=== PATIENT | female | born 1955 | race Caucasian/White ===

== ENCOUNTER 2023-04-29 11:50 | Emergency (ER) | payer MEDICARE, MEDICAID, SELFPAY ==
[2023-04-29] VITALS (16 sets, daily range): BP systolic 185–226; BP diastolic 86–109; PULSE 65–75; RESP 12–21; TEMP 37.1; O2SAT 94–98
--- NOTE | 2023-04-29 12:00 | RT.EKG_ITS ---
APPROVED REPORT Exam: Resting ECG Reason for Exam: hypertension Patient Location: E HR:69 bpm ECG Measurements Heart Rate 69 AXIS MD 176 P 67 QRSd 84 QRS 39 QT 401 T 48 QTc 429 Conclusion Sinus rhythm..V-rate 60- [address] segment or T wave abnormalities to suggest occlusive PA
--- NOTE | 2023-04-29 12:17 | W.ED.GENAD ---
Discharge Plan Disposition Patient Disposition: Home Discharge Details Chief Complaint: GenMedical Clinical Impression: Chronic hyponatremia, Hypertension Primary Care Provider: Enrique Ibarra ED Provider: Grace Liu Home Meds and New Rx's Prescriptions: No Action losartan 50 MG tablet 50 mg PO DAILY amlodipine 5 MG tablet 5 mg PO DAILY Discharge Instructions Instructions: Hypertension (ED), Hyponatremia (ED) Additional Instructions: Call your primary care doctor today; schedule an appointment to be seen this week to follow up on your visit here. Take your blood pressure medications as prescribed. Return to the emergency department for new or worsening symptoms including headache, vomiting, confusion, dark urine, inability to urinate, or if you have any other concerns. Medical Decision Making 68yo F with HTN, denies other medical conditions, presenting for hyponatremia and hypertension at outpatient visit; sodium reportedly 122. BP on arrival 226/109, repeat SBP 190's. Asymptomatic; would not treat emergently. Physical exam reassuring with normal neurologic exam. Home meds ordered. Family at bedside report patient is a heavy drinker,; patient reports drinking some every day but will not quantify how much. Labs reviewed; CBC reassuring, CMP with Na of 128, Cr 0.7. Mg slightly low at 1.5. TSH normal. Urine with trace RBCs, negative for protein. Ur sosium 24, cr <13.0, osms (send-out) pending. Suspect beer potomania. EKG NSR with appropriate intervals, no concerning ST segment or T wave abnormalities to suggest occlusive VT. Troponin negative. No indication of acute end-organ damage from her hypertension and she is asymptomatic from both a hypertension and hyponatremia standpoint. Her sodium level in and of itself does not warrant inpatient treatment. On reassessment SBP in 180's. Offered ETOH detox resources which patient declined. Reviewed her current prescriptions; patient and family at bedside state she has both these prescriptions at home. Advised close followup with her primary care doctor. Discharged home; discharge instructions including return precautions were reviewed with patient who verbalized understanding. All questions were answered and they are in full agreement with the plan. Lab Data Lab results reviewed: Yes I reviewed the patient's lab results. Labs: Laboratory Tests Range/Units 04/29/23 04/29/23 04/29/23 12:32 12:32 12:35 WBC (4.4-10.8) 10^3/uL RBC (3.93-5.22) 10^6/uL Hgb (11.2-15.7) g/dL Hct (36.0-46.0) % MCV (80-95) fL MCH (27.0-33.0) pg MCHC (32.0-36.0) % RDW (11.7-14.6) % Plt Count (130-400) 10^3/uL MPV (8.0-11.0) fL Immature Gran % Neutrophils % Lymphocytes % Monocytes % Eosinophils % Basophils % Nucleated RBC % (0.0-0.3) % Absolute Neutrophils (1.2-6.7) 10^3/uL Absolute Lymphocytes (1.2-3.4) 10^3/uL Absolute Monocytes (0.1-0.8) 10^3/uL Absolute Eosinophils (0.0-0.7) 10^3/uL Absolute Basophils (0.0-0.2) 10^3/uL Sodium (136-145) mmol/L 128 L Potassium (3.5-5.1) mmol/L 3.9 Chloride (98-107) mmol/L 90 L Carbon Dioxide (21.0-32.0) mmol/L 26.1 Anion Gap (3-11) mmol/L 11.9 H BUN (7-18) mg/dL 4 L Creatinine (0.55-1.02) mg/dL 0.7 Est GFR (CKD-EPI 2020) (mL/min/1.73m2) 94.73 Glucose (74-106) mg/dL 88 Uric Acid (2.6-6.0) mg/dL 3.1 Calcium (8.5-10.1) mg/dL 9.2 Magnesium (1.8-2.4) mg/dL 1.5 L Total Bilirubin (0.2-1.0) mg/dL 0.7 AST (15-37) U/L 37 ALT (14-59) U/L 44 Alkaline Phosphatase (46-116) U/L 166 H Troponin I (<or=60) ng/L < 50 Total Protein (6.4-8.2) g/dL 8.0 Albumin (3.4-5.0) g/dL 4.3 TSH (0.36-3.74) uIU/mL 2.00 Urine Color (Yellow) Yellow Urine Clarity (Clear) Clear Urine pH (5-8) 7.0 Ur Specific [place] (1.005-1.025) 1.010 Urine Protein (Negative) mg/dL Negative Urine Ketones (Negative) mg/dL Negative Urine Blood (Negative) Trace-intact H Urine Nitrite (Negative) Negative Urine Bilirubin (Negative) Negative Urine Urobilinogen (Up to 0.2) mg/dL 0.2 Ur Leukocyte Esterase (Negative) Negative Urine RBC (0-2) HPF 3-5 H Urine WBC (0-5) HPF 0-2 Ur Epithelial Cells (Negative) HPF Few Urine Crystals (Negative) HPF Negative Urine Bacteria (Negative) HPF Rare Urine Casts (Negative) LPF Negative Urine Mucus (Negative) Negative Ur Culture Indicated? No Ur Random Creatinine mg/dL < 13.0 Ur Random Sodium mmol/L 24 Urine Glucose (Negative) mg/dL Negative Range/Units 04/29/23 04/29/23 12:35 12:35 WBC (4.4-10.8) 10^3/uL 6.25 RBC (3.93-5.22) 10^6/uL 3.72 L Hgb (11.2-15.7) g/dL 13.5 Hct (36.0-46.0) % 37.0 MCV (80-95) fL 100 H MCH (27.0-33.0) pg 36.3 H MCHC (32.0-36.0) % 36.5 H RDW (11.7-14.6) % 11.3 L Plt Count (130-400) 10^3/uL 216 MPV (8.0-11.0) fL 9.0 Immature Gran % 0.3 Neutrophils % 66.7 Lymphocytes % 21.4 Monocytes % 10.2 Eosinophils % 0.6 Basophils % 0.8 Nucleated RBC % (0.0-0.3) % 0.0 Absolute Neutrophils (1.2-6.7) 10^3/uL 4.16 Absolute Lymphocytes (1.2-3.4) 10^3/uL 1.34 Absolute Monocytes (0.1-0.8) 10^3/uL 0.64 Absolute Eosinophils (0.0-0.7) 10^3/uL 0.04 Absolute Basophils (0.0-0.2) 10^3/uL 0.05 Sodium (136-145) mmol/L Potassium (3.5-5.1) mmol/L Chloride (98-107) mmol/L Carbon Dioxide (21.0-32.0) mmol/L Anion Gap (3-11) mmol/L BUN (7-18) mg/dL Creatinine (0.55-1.02) mg/dL Est GFR (CKD-EPI 2020) (mL/min/1.73m2) Glucose (74-106) mg/dL Uric Acid (2.6-6.0) mg/dL Cancelled Calcium (8.5-10.1) mg/dL Magnesium (1.8-2.4) mg/dL Total Bilirubin (0.2-1.0) mg/dL AST (15-37) U/L ALT (14-59) U/L Alkaline Phosphatase (46-116) U/L Troponin I (<or=60) ng/L Total Protein (6.4-8.2) g/dL Albumin (3.4-5.0) g/dL TSH (0.36-3.74) uIU/mL Cancelled Urine Color (Yellow) Urine Clarity (Clear) Urine pH (5-8) Ur Specific [place] (1.005-1.025) Urine Protein (Negative) mg/dL Urine Ketones (Negative) mg/dL Urine Blood (Negative) Urine Nitrite (Negative) Urine Bilirubin (Negative) Urine Urobilinogen (Up to 0.2) mg/dL Ur Leukocyte Esterase (Negative) Urine RBC (0-2) HPF Urine WBC (0-5) HPF Ur Epithelial Cells (Negative) HPF Urine Crystals (Negative) HPF Urine Bacteria (Negative) HPF Urine Casts (Negative) LPF Urine Mucus (Negative) Ur Culture Indicated? Ur Random Creatinine mg/dL Ur Random Sodium mmol/L Urine Glucose (Negative) mg/dL HPI General Mode of arrival: ambulatory. Date/Time Provider Initiated Documentation: 04/29/23 11:57. Limitations to Documentation: no limitations. Information obtained by: patient and family. HPI Narrative: 68yo F with hypertension presenting for hyponateremia and elevated blood pressure, both found at routine outpatient visit. She is otherwise in her usual state of health with no chest pain, shortness of breath, decreased urine output, abdominal pain, headache, nausea, vomiting, confusion, or other concerns. Related Data Home Medications Medication Instructions Recorded Confirmed amlodipine 5 mg tablet 5 mg PO DAILY 03/10/18 04/29/23 losartan 50 mg tablet 50 mg PO DAILY 03/10/18 04/29/23 Allergies Allergy/AdvReac Type Severity Reaction Status Date / Time Penicillins Allergy HIVES Unverified 04/29/23 11:58 General Stated Complaint: GenMedical SWAPNIL: 3 Review of Systems Narrative: see HPI PFSH All Active Problems (Updated 04/29/23 @ 14:13 by Grace Liu MD) Chronic hyponatremia (Acute) Hypertension (Chronic) Social History (System 04/13/21 @ 13:34 by Nanci Queen) Smoking/Tobacco Use Status: Current every day Tobacco Type: cigarettes Smoking risk assessment performed?: Yes Alcohol Intake: current Alcohol Intake frequency: 3 or more drinks per day Alcohol type: beer Drug use: Never Substance use type: does not use Do you feel safe at home: Yes Do you feel safe in your relationship?: Yes Exam Narrative Exam Narrative: General: Alert, well appearing, well nourished, in no acute distress. Head: Normocephalic, atraumatic Neck: Trachea midline, Neck supple. ENT: MMM. No oropharygeal lesions or exudate. Cardiac: RRR, no murmurs appreciated Resp: No respiratory distress. CTAB. Abd: Soft, non-distended, nontender : No suprapubic tenderness. No CVA tenderness. Extremities: No deformities. No peripheral edema. Neuro: GCS 15. PERRL. EOMI. Fluent speech, no dysarthria. Motor- 5/5 strength symmetric bilateral upper and lower extremities Sensation- Intact to light touch and symmetric multiple dermatomes including upper and lower extremities. Normal sensation in V1, V2, and V3 segments bilaterally. No facuak asymmetry, no nasolabial fold flattening Coordination- No dysmetria on finger to nose Gait/station: Normal stance. No truncal ataxia. Steady gait with equal normal steps Course Vital Signs Vital signs: Vital Signs Temperature 37.1 C 04/29/23 11:53 Pulse 75 04/29/23 11:53 Respiratory Rate 20 04/29/23 11:53 Blood Pressure 226/109 H 04/29/23 11:53 Pulse Oximetry 98 04/29/23 11:53 Temperature 37.1 C 04/29/23 11:53 Temperature Source Oral 04/29/23 11:53 Pulse 75 04/29/23 11:53 Respiratory Rate 20 04/29/23 11:53 Respiratory Effort Normal, Non-Labored 04/29/23 11:59 Blood Pressure 226/109 H 04/29/23 11:53 Blood Pressure Position Supine 04/29/23 11:53 Pulse Oximetry 98 04/29/23 11:53 Oxygen Delivery Method Room Air 04/29/23 11:53 Oxygen Flow Rate 0 04/29/23 11:53 Pain Level 0 04/29/23 11:53 PAWSS Have you Been Recently Intoxicated or Drunk Within the Last 30 days?: No Have you Ever Experienced Previous Episodes of Alcohol Withdrawal?: No Have you ever Experienced Withdrawal Seizures?: No Have you ever Experienced Delirium Tremens(DT)s?: No Have you ever undergone Alcohol Rehabilitation Treatment (i.e, inpt ot outpatient treatment programs)?: No Have you ever Experienced Blackouts?: No Have you ever Combined Alcohol with other Downers within the last 90 days?: No Have you ever Combined Alcohol with any other Substance of Abuse during the last 90 days?: No Positive Blood Alcohol level on Presentation? [PCS.BAL]: Unable to Obtain Evidence of Increased Autonomic Activity (i.e. HR>120, tremor, sweating, agitation, nausea)?: No Result: 0
[2023-04-29 12:49] LABS: Abs Immature Grans 0.02 10^3/uL (0.0-0.06); Absolute Basophil Count 0.05 10^3/uL (0.0-0.2); Absolute Eosinophil Count 0.04 10^3/uL (0.0-0.7); Absolute Lymphocyte Count 1.34 10^3/uL (1.2-3.4); Absolute Monocyte Count 0.64 10^3/uL (0.1-0.8); Absolute Neutrophil Count 4.16 10^3/uL (1.2-6.7); Basophils % 0.8; Eosinophils % 0.6; HGB 13.5 g/dL (11.2-15.7); Immature Grans % 0.3; Lymphocytes % 21.4; MCH 36.3 pg (27.0-33.0); MCHC 36.5 % (32.0-36.0); MCV 100 fL (80-95); Monocytes % 10.2; Neutrophils % 66.7; Platelet Count 216 10^3/uL (130-400); RBC 3.72 10^6/uL (3.93-5.22); RDW 11.3 % (11.7-14.6); RDW-SD 41.4 fL; WBC 6.25 10^3/uL (4.4-10.8)
[2023-04-29 12:51] LABS: Bilirubin Negative (Negative); Blood Trace-intact (Negative); Clarity Clear (Clear); Glucose Negative (Negative); Ketones Negative (Negative); Leukocyte Esterase Negative (Negative); Nitrite Negative (Negative); Urobilinogen 0.2 mg/dL (Up to 0.2)
[2023-04-29 13:05] LABS: Sodium, Urine 24 mmol/L
[2023-04-29 13:18] LABS: Bacteria Rare HPF (Negative); C & S Indicated? No; Casts Negative LPF (Negative); Crystals Negative HPF (Negative); Epithelial Cells Few HPF (Negative); Mucus Negative (Negative); WBC 0-2 HPF (0-5)
[2023-04-29 13:18] LABS: ALT 44 U/L (14-59); AST 37 U/L (15-37); Albumin 4.3 g/dL (3.4-5.0); Alkaline Phosphatase 166 U/L (46-116); Anion Gap 11.9 mmol/L (3-11); BUN 4 mg/dL (7-18); Bilirubin, Total 0.7 mg/dL (0.2-1.0); CO2 26.1 mmol/L (21.0-32.0); CREATININE 0.7 mg/dL (0.55-1.02); Calcium 9.2 mg/dL (8.5-10.1); Chloride 90 mmol/L (98-107); Estimated GFR 94.73 (mL/min/1.73m2); Glucose 88 mg/dL (74-106); Magnesium 1.5 mg/dL (1.8-2.4); Potassium 3.9 mmol/L (3.5-5.1); Sodium 128 mmol/L (136-145); Troponin I < 50 ng/L (<or=60); Uric Acid 3.1 mg/dL (2.6-6.0)
[2023-04-29 13:20] LABS: Creatinine,Urine < 13.0 mg/dL
[2023-04-29] MEDS: amLODIPine 5 MG TAB PO (14:32)
[2023-04-29] MEDS: Losartan 25 MG TAB 50 MG PO (14:32)
[2023-04-29 22:17] LABS: Osmolality, Urine 114 mOsm/kg (150-1150)
== END 2023-04-29 14:33 | disposition home or self-care (01) ==
PROVIDERS: Emergency Provider Student in an Organized Health Care Education/Training Program; PCP Neuromusculoskeletal Medicine & OMM
DX: I10 Essential (primary) hypertension (principal); E87.1 Hypo-osmolality and hyponatremia
CPT/HCPCS: 80053; 83935; 93005; 99283; 81003; 81015; 82565; 83735; 84300; 84443; 84484; 84550; 85025; 93010

== ENCOUNTER 2025-01-21 11:43 | Day surgery (SDC) | payer MEDICARE, SELFPAY ==
--- NOTE | 2025-01-21 06:41 | W.ANESPRE ---
General Info Date of Service Date Performed: 01/21/25 Height: 5 ft 2 in Weight: 58.967 kg Body Mass Index (BMI): 23.8 Surgical Procedure: Operation Date: 01/21/25 13:40 Proposed Procedure Side Surgeon p Cataract Extraction with IOL Implant Right Dar Mills MD Meds Allergies and Home Medications Allergies Allergy/AdvReac Type Severity Reaction Status Date / Time Penicillins Allergy HIVES Verified 01/20/25 12:08 Home Medication ?Medication ?Instructions ?Recorded amlodipine 5 mg tablet 5 mg PO DAILY 03/10/18 losartan 50 mg tablet 50 mg PO DAILY 03/10/18 amlodipine 10 mg tablet 10 mg PO DAILY 01/20/25 cholecalciferol (vitamin D3) 50 2,000 unit PO DAILY 01/20/25 mcg (2,000 unit) capsule (D3-2000) ibuprofen 800 mg tablet 800 mg PO DIRECTED 01/20/25 thiamine HCl (vitamin B1) 100 mg 100 mg PO DAILY 01/20/25 tablet Current Visit Medications: Current Medications Generic Name Dose Route Start Last Admin Trade Name Freq PRN Reason Stop Dose Admin Acetaminophen 1,000 mg 01/21/25 06:00 Acetaminophen 500 Mg Tab PO 02/20/25 05:59 Q4H PRN PRN Balanced Salt Solution 500 ml 01/21/25 06:11 Balanced Salt Soln.-Plus 500 Ml Bag OP 02/20/25 06:10 DIRECTED [facility] Miscellaneous Medication 0 ml 01/21/25 06:10 Prednisolone 1%, Moxifloxacin 0.5%, Bromfenac 0.09% 5.6ml Btl OD 02/20/25 06:09 DIRECTED [facility] Miscellaneous Medication 0 ml 01/21/25 06:10 Tropicam./Phenyleph. (1/2.5%) 5 Ml Btl OD 02/20/25 06:09 DIRECTED [facility] Tetracaine HCl 0 ml 01/21/25 06:10 Tetracaine 0.5% 4 Ml Btl OD 02/20/25 06:09 DIRECTED [facility] PFSH Active Problems Active Problems: Problem Status Onset Code Nuclear age-related cataract, right eye Acute H25.11 Medical History Medical History (Updated 01/20/25 @ 19:52 by Dar Mills MD) Streptococcal sore throat Lobar pneumonia Excoriated rash Cyst of ovary Bruising Low back pain Urinary incontinence Raynauds disease Nicotine dependence Melanocytic nevus of face Macrocytic anemia Idiopathic osteoarthritis Hyponatremia HLD (hyperlipidemia) COPD (chronic obstructive pulmonary disease) Bilateral cataracts Allergic rhinitis Alkaline phosphatase elevation Alcohol abuse Abnormal CBC Surgical History Surgical History History of ovarian cystectomy Tobacco Smoking/Tobacco Use Status: Current every day Tobacco Type: cigarettes Alcohol Alcohol Intake: former Substance Use Substance use: Current Sobriety Substance use type: does not use Vital Signs and Lab Results Lab Results Blood Type / Crossmatch: No Data to Display Complete Blood Count: No Data to Display Complete Metabolic Panel: No Data to Display Liver Function Panel: No Data to Display Coagulation Panel: No Data to Display Cardiac Panel: No Data to Display Arterial Blood Gas: No Data to Display Venous Blood Gas: No Data to Display Pancreas Panel: No Data to Display Thyroid Panel: No Data to Display Infectious Disease: No Data to Display Blood Cultures: No Data to Display Toxicology Panel: No Data to Display Anesthesia Assessment and Plan Anesthesia History Personal History: No History of Anesthesia Complications Family History: No Family History of Anesthesia Complications Exercise Tolerance Exercise Tolerance: Metabolic Equivalents>4 Cardiac & Pulmonary Exam Cardiac Exam: Normal S1/S2 Heart Sounds Pulmonary Exam: Clear Bilateral Breath Sounds Implantable Cardiac Device Does patient have a Pacemaker or an ICD?: No Airway Exam Known Difficult Airway: No Mallampati Class: 4 Mouth Opening: Normal (> 3cm) Thyromental Distance: Less than 3 cm Neck Range of Motion: Full ROM Neck Circumference: Normal Teeth Condition: Generalized Poor Dentition Airway Comments: multiple missing. ASA Classification ASA Score: ASA 2 Emergency Case?: No NPO Status NPO Status: NPO Clears >2 hours, Solids >8 hours Anesthesia Plan Resuscitation Status: Full Code Anesthesia Technique: MAC Anesthesia Airway Planned: Natural Airway Monitors Used: Standard Monitors Preoperative Comments:: 69 yo female for cataract removal. Sig PMHx: HTN (amlodipine, losartan), COPD, Raynaud's, smoker, anemia, ECG: sinus. Would like sedation, but states she is very sensitive to meds. Would like 1/2 MKO.
[2025-01-21 10:53] VITALS: BMI 23.8
[2025-01-21 11:56] VITALS: BP 138/84; PULSE 78; RESP 16; TEMP 36.6; O2SAT 96
[2025-01-21] MEDS: Tropicam./Phenyleph. (1/2.5%) 5 ML BTL OD ×3 (12:00→12:10)
[2025-01-21] MEDS: Moxifloxacin-PF 1 MG/ML VIAL (12:24)
[2025-01-21] MEDS: Duovisc Viscoelastic System EACH 1 EACH (12:24)
[2025-01-21] MEDS: Lidocaine 1% Pres-Free 5 ML VIAL (12:24)
[2025-01-21] MEDS: Phenylephrine/Lidocaine (15/10) MG/ML 1 ML VIAL (12:25)
[2025-01-21] MEDS: Povidone-Iodine Ophth 30 ML BTL (12:25)
[2025-01-21] MEDS: Balanced Salt Soln.-PLUS 500 ML BAG OP (12:26)
[2025-01-21] MEDS: Prednisolone 1%, Moxifloxacin 0.5%, Bromfenac 0.09% 5.6ML BTL OD (12:26)
[2025-01-21] MEDS: Tetracaine 0.5% 4 ML BTL OD (12:26)
[2025-01-21 12:43] VITALS: BP 145/71; PULSE 76; RESP 18; TEMP 36.6; O2SAT 94
--- NOTE | 2025-01-21 12:43 | W.PM.DSUDISC ---
Date of service: 01/21/25 Discharge Plan Disposition Patient Disposition: Home Discharge Details Attending Provider: Dar Mills Primary Care Provider: Enrique Ibarra [place] Meds and New Rx's Prescriptions: No Action losartan 50 MG tablet 50 mg PO DAILY amlodipine 5 MG tablet 5 mg PO DAILY amlodipine 10 mg tablet 10 mg PO DAILY Patient Comments: TAKE ONE TABLET BY MOUTH EVERY DAY ibuprofen 800 mg tablet 800 mg PO DIRECTED Patient Comments: TAKE ONE TABLET BY MOUTH EVERY 8 HOURS ; ONLY TAKE IF ALSO TAKING OMEPRAZOLE OR EQUIVALENT thiamine HCl (vitamin B1) 100 mg tablet 100 mg PO DAILY cholecalciferol (vitamin D3) [D3-2000] 50 mcg (2,000 unit) capsule 2,000 unit PO DAILY Discharge Instructions Stand Alone Forms: DSU Post-Op Cataract, Cleo Cole (DSU) Discharge Orders Discharge Orders: Discharge Order (Routine); Ordered 01/21/25 Ordered By: Dar Mills DS: Diagnosis Discharge Diagnosis (1) Nuclear age-related cataract, right eye: Status: Resolved
--- NOTE | 2025-01-21 12:44 | ROE_ITS ---
Operative Note Operative Note PRE-OP DIAGNOSIS: Nuclear cataract, right eye POST-OP DIAGNOSIS: same PROCEDURE: Cataract extraction using phacoemulsification with intraocular lens implant, right eye SURGEON: Dar Mills ANESTHESIA TYPE: Local By Surgeon and MAC Refer to Anesthesia Record ESTIMATED BLOOD LOSS: 0 PATHOLOGY: none sent COMPLICATIONS: None Patient was transported to: same day Patient's condition: stable Implants: Antony Clareon [id number] Indications: Progressive decreased vision due to cataract, right eye Procedure Description: CATARACT SURGERY OPERATIVE REPORT PREOPERATIVE DIAGNOSIS: Nuclear cataract, right eye POSTOPERATIVE DIAGNOSIS: Same OPERATION: Cataract extraction using phacoemulsification with posterior chamber intraocular lens implant, right eye. IOL: IOL Accounts Receivable Bookkeeper/Model: Antony Clareon [id number] IOL Power: + 18.0 diopters IOL Serial Number: [id number] Optic Diameter: 6.0mm Haptic/Overall Diameter: 13.0mm PHACO INFO: Antony Centurion Vision System with OZil and Active Fluidics Cumulative Dispersed Energy (CDE): 13.13 seconds SURGEON: Dar Mills MD, ADENIKE ANESTHESIA: Monitored Anesthesia Care (MAC), with local sub-tenon's anesthetic infiltration COMPLICATIONS: None SPECIMENS: None INDICATIONS FOR PROCEDURE: The patient is a 69-year-old lady with history of diminished visual acuity in her right eye secondary to the development of nuclear cataract. She is significantly symptomatic that she desires cataract surgery in attempt to improve and maximize her vision. The option of cataract surgery was offered to the patient and she wished to proceed. See office notes for detailed information. PROCEDURE: The correct surgical eye was identified and marked as the right eye and the pupil was dilated in the preoperative area using mydriatics and cycloplegics. The dilated pupil size was 5.0 mm. Oral sedation was administered in the form of one half of an Imprimis MKO Melt (midazolam 3mg/ketamine 25mg/ondansetron 2mg). The patient was brought to the operating room where cardiopulmonary monitoring was instituted and surgical time-out was performed, confirming the correct operative eye and IOL power. Topical anesthesia was administered and ophthalmic povidone-iodine 5% was instilled into the conjunctival fornices. The ikm-ocular area was prepped with Betadine 10% solution and draped in the usual sterile fashion for intraocular surgery, including an aperture drape. A Tegaderm transparent film dressing was cut in half and used to cover the lashes and lid margins. Care was taken to sequester the lashes and lid margins under the Tegaderm dressing. A lid speculum was placed between the lids of the operative eye and the Antony LuxOR Revalia operating microscope was maneuvered into position. Lenore scissors were then used to make a conjunctival buttonhole approximately 6mm posterior to the limbus in the inferonasal quadrant. Blunt dissection was carried out to expose bare sclera, and a blunt-tipped sub-tenon?s anesthesia cannula was introduced and passed posteriorly along the globe where non-pres erved plain lidocaine was injected into posterior sub-Tenon?s space. A sideport knife was used to make a paracentesis port. Intraocular phenylephrine/lidocaine was injected into the anterior chamber. The anterior chamber was then filled with viscoelastic. A keratome knife was used to construct a two--plane clear corneal tunnel extending 2.0mm into clear cornea. A flap was raised on the anterior capsule and capsulorhexis forceps were used to complete a continuous curvilinear capsulorhexis of 5.5 mm. Balanced salt solution was then used to perform cortical cleaving hydrodissection and nuclear hydrodelineation until the lens could be freely rotated within the capsular bag. The lens nucleus was then disassembled and removed within the capsular bag and iris plane using phacoemulsification. Residual cortical material was removed using the I/A handpiece. The posterior capsule was carefully polished to remove as much residual lens epithelial cells as safely possible. The capsular bag was then inflated and the anterior chamber deepened with cohesive viscoelastic. The lens implant described above was inserted into the capsular bag using the Antony Autonome Injector. A Kuglen hook was used to dial the IOL into position. Residual viscoelastic was then removed first from posterior to the IOL, then from the anterior chamber using the I/A handpiece. The lens implant was noted to center nicely within the capsular bag. The incisions were stromally hydrated, and the anterior chamber was reformed using BSS. Then 0.5cc of moxifloxacin 1.0mg/ml were injected into the capsular bag and anterior chamber. The incisions were checked with a Weck spear and found to be secure. Several drops of ophthalmic povidone-iodine 5% were then applied to the eye followed by two drops of combination steroid/NSAID/antibiotic solution. The drapes were removed and a clear plastic protective eye shield was placed over the eye. The patient was then returned to Same Day Surgery in stable condition. Date of Procedure: 01/21/25
--- NOTE | 2025-01-21 12:55 | W.ANESPOSTOP ---
Postoperative Evaluation Date, Time and Location Date Performed: 01/21/25 Time Performed: 12:55 Patient Location: Day Surgery Unit Vital Signs Most Recent Imported Vital Signs: Most Recent Vital Signs Temp Pulse Resp BP Pulse Ox 36.6 C 76 18 145/71 H 94 01/21/25 12:43 01/21/25 12:43 01/21/25 12:43 01/21/25 12:43 01/21/25 12:43 Pain Score Most Recent Pain Score: Most Recent Pain Score Pain Level 0 01/21/25 12:43 Assessment Mental Status: Awake (Alert & Oriented to Patient Baseline) Airway and Respiratory Function: Patent airway with normal (patient baseline) respiratory exam Cardiovascular Function: Hemodynamically Stable Hydration Status: Adequately Hydrated Nausea & Vomiting: No Nausea or Vomiting Pain: Pt. Denies Any Pain Peripheral Nerve Block: Patient did not receive a nerve block
[2025-01-21 13:15] VITALS: BP 117/88; PULSE 74; RESP 18; TEMP 36.6; O2SAT 96
== END 2025-01-21 13:20 | disposition home or self-care (01) ==
PROVIDERS: PCP Neuromusculoskeletal Medicine & OMM; Visit Provider Ophthalmology
PROC: (CPT 66984; principal; 2025-01-21 13:30)
DX: H25.11 Age-related nuclear cataract, right eye (principal); J44.9 Chronic obstructive pulmonary disease, unspecified; F17.210 Nicotine dependence, cigarettes, uncomplicated; I10 Essential (primary) hypertension
CPT/HCPCS: 66984; 00123; V2632; J2003

== ENCOUNTER 2025-02-04 12:43 | Day surgery (SDC) | payer MEDICARE, SELFPAY ==
[2025-02-04 12:57] VITALS: BP 175/90; PULSE 80; RESP 20; TEMP 36.5; O2SAT 98
--- NOTE | 2025-02-04 13:10 | ANES.PREOP_ITS ---
General Info Date of Service Date Performed: 02/04/25 Height: 5 ft 1 in Weight: 63.3 kg Body Mass Index (BMI): 26.4 Surgical Procedure: Operation Date: 02/04/25 14:40 Proposed Procedure Side Surgeon p Cataract Extraction with IOL Implant Left Dar Mills MD Meds Allergies and Home Medications Allergies Allergy/AdvReac Type Severity Reaction Status Date / Time Penicillins Allergy HIVES Verified 02/04/25 13:03 Home Medication ?Medication ?Instructions ?Recorded amlodipine 5 mg tablet 5 mg PO DAILY 03/10/18 losartan 50 mg tablet 50 mg PO DAILY 03/10/18 amlodipine 10 mg tablet 10 mg PO DAILY 01/20/25 cholecalciferol (vitamin D3) 50 2,000 unit PO DAILY 01/20/25 mcg (2,000 unit) capsule (D3-2000) ibuprofen 800 mg tablet 800 mg PO DIRECTED 01/20/25 thiamine HCl (vitamin B1) 100 mg 100 mg PO DAILY 01/20/25 tablet multivitamin 1 tab PO DAILY 02/04/25 Current Visit Medications: Current Medications Generic Name Dose Route Start Last Admin Trade Name Freq PRN Reason Stop Dose Admin Acetaminophen 1,000 mg 02/04/25 06:20 Acetaminophen 500 Mg Tab PO 03/06/25 06:19 Q4H PRN PRN Balanced Salt Solution 500 ml 02/04/25 06:20 Balanced Salt Soln.-Plus 500 Ml Bag OP 03/06/25 06:19 DIRECTED [facility] Miscellaneous Medication 0 ml 02/04/25 06:20 Prednisolone 1%, Moxifloxacin 0.5%, Bromfenac 0.09% 5.6ml Btl OS 03/06/25 06:19 DIRECTED [facility] Miscellaneous Medication 0 ml 02/04/25 06:20 Tropicam./Phenyleph. (1/2.5%) 5 Ml Btl OS 03/06/25 06:19 DIRECTED [facility] Tetracaine HCl 0 ml 02/04/25 06:20 Tetracaine 0.5% 4 Ml Btl OS 03/06/25 06:19 DIRECTED [facility] PFSH Active Problems Active Problems: Problem Status Onset Code Nuclear age-related cataract, left eye Acute H25.12 Nuclear age-related cataract, right eye Resolved H25.11 Medical History Medical History Streptococcal sore throat Lobar pneumonia Excoriated rash Cyst of ovary Bruising Low back pain Urinary incontinence Raynauds disease Nicotine dependence Melanocytic nevus of face Macrocytic anemia Idiopathic osteoarthritis Hyponatremia HLD (hyperlipidemia) COPD (chronic obstructive pulmonary disease) Bilateral cataracts Allergic rhinitis Alkaline phosphatase elevation Alcohol abuse Abnormal CBC Surgical History Surgical History History of ovarian cystectomy Tobacco Smoking/Tobacco Use Status: Current every day Tobacco Type: cigarettes Alcohol Alcohol Intake: former Substance Use Substance use: Current Sobriety Substance use type: does not use Vital Signs and Lab Results Vital Signs Most Recent Vital Signs in EMR: Most Recent Vital Signs Temp Pulse Resp BP Pulse Ox 36.5 C 80 20 175/90 H 98 02/04/25 12:57 02/04/25 12:57 02/04/25 12:57 02/04/25 12:57 02/04/25 12:57 Lab Results Blood Type / Crossmatch: No Data to Display Complete Blood Count: No Data to Display Complete Metabolic Panel: No Data to Display Liver Function Panel: No Data to Display Coagulation Panel: No Data to Display Cardiac Panel: No Data to Display Arterial Blood Gas: No Data to Display Venous Blood Gas: No Data to Display Pancreas Panel: No Data to Display Thyroid Panel: No Data to Display Infectious Disease: No Data to Display Blood Cultures: No Data to Display Toxicology Panel: No Data to Display Anesthesia Assessment and Plan Anesthesia History Personal History: No History of Anesthesia Complications Family History: No Family History of Anesthesia Complications Exercise Tolerance Exercise Tolerance: Metabolic Equivalents>4 Cardiac & Pulmonary Exam Cardiac Exam: Normal S1/S2 Heart Sounds Pulmonary Exam: Clear Bilateral Breath Sounds Implantable Cardiac Device Does patient have a Pacemaker or an ICD?: No Airway Exam Known Difficult Airway: No Mallampati Class: 4 Mouth Opening: Normal (> 3cm) Thyromental Distance: Less than 3 cm Neck Range of Motion: Full ROM Neck Circumference: Normal Teeth Condition: Generalized Poor Dentition Airway Comments: multiple missing. ASA Classification ASA Score: ASA 2 Emergency Case?: No NPO Status NPO Status: NPO Clears >2 hours, Solids >8 hours Anesthesia Plan Resuscitation Status: Full Code Anesthesia Technique: MAC Anesthesia Airway Planned: Natural Airway Monitors Used: Standard Monitors Preoperative Comments:: 69 yo female for cataract removal. Sig PMHx: HTN (amlodipine, losartan), COPD, Raynaud's, smoker, anemia, ECG: sinus. 09/16 MKO last visit. Plan is a whole MKO this visit
[2025-02-04 13:12] VITALS: BMI 26.4
[2025-02-04] MEDS: Tropicam./Phenyleph. (1/2.5%) 5 ML BTL OS ×3 (13:12→13:23)
[2025-02-04] MEDS: Povidone-Iodine Ophth 30 ML BTL (14:14)
[2025-02-04] MEDS: Tetracaine 0.5% 4 ML BTL OS (14:16)
[2025-02-04] MEDS: Duovisc Viscoelastic System EACH 1 EACH (14:21)
[2025-02-04] MEDS: Phenylephrine/Lidocaine (15/10) MG/ML 1 ML VIAL (14:22)
[2025-02-04] MEDS: Lidocaine 1% Pres-Free 5 ML VIAL (14:22)
[2025-02-04] MEDS: Balanced Salt Soln.-PLUS 500 ML BAG OP (14:23)
[2025-02-04] MEDS: Moxifloxacin-PF 1 MG/ML VIAL (14:36)
[2025-02-04] MEDS: Prednisolone 1%, Moxifloxacin 0.5%, Bromfenac 0.09% 5.6ML BTL OS (14:37)
--- NOTE | 2025-02-04 14:42 | PDOC.DSDIS_ITS ---
Date of service: 02/04/25 Discharge Plan Disposition Patient Disposition: Home Discharge Details Attending Provider: Dar Mills Primary Care Provider: Enrique Ibarra [place] Meds and New Rx's Prescriptions: No Action losartan 50 MG tablet 50 mg PO DAILY amlodipine 5 MG tablet 5 mg PO DAILY amlodipine 10 mg tablet 10 mg PO DAILY Patient Comments: TAKE ONE TABLET BY MOUTH EVERY DAY ibuprofen 800 mg tablet 800 mg PO DIRECTED Patient Comments: TAKE ONE TABLET BY MOUTH EVERY 8 HOURS ; ONLY TAKE IF ALSO TAKING OMEPRAZOLE OR EQUIVALENT thiamine HCl (vitamin B1) 100 mg tablet 100 mg PO DAILY cholecalciferol (vitamin D3) [D3-2000] 50 mcg (2,000 unit) capsule 2,000 unit PO DAILY multivitamin Tablet 1 tab PO DAILY Discharge Instructions Stand Alone Forms: [facility] Post-Op Cataract, Cleo Cole ([facility]) Discharge Orders Discharge Orders: Discharge Order (Routine); Ordered 02/04/25 Ordered By: Dar Mills DS: Diagnosis Discharge Diagnosis (1) Nuclear age-related cataract, left eye: Status: Resolved
--- NOTE | 2025-02-04 14:43 | W.PM.OP ---
Operative Note Operative Note PRE-OP DIAGNOSIS: Nuclear cataract, left eye POST-OP DIAGNOSIS: same PROCEDURE: Cataract extraction using phacoemulsification with intraocular lens implant, left eye SURGEON: Dar Mills ANESTHESIA TYPE: Local By Surgeon and MAC Refer to Anesthesia Record PATHOLOGY: none sent COMPLICATIONS: None Patient was transported to: same day Patient's condition: stable Implants: Antony Clareon [id number] Indications: Progressive decreased vision due to cataract, left eye Procedure Description: CATARACT SURGERY OPERATIVE REPORT PREOPERATIVE DIAGNOSIS: Nuclear cataract, left eye POSTOPERATIVE DIAGNOSIS: Same OPERATION: Cataract extraction using phacoemulsification with posterior chamber intraocular lens implant, left eye. IOL: IOL Rn Neurosurgical/Model: Antony Clareon [id number] IOL Power: + 19.0 diopters IOL Serial Number: [id number] Optic Diameter: 6.0mm Haptic/Overall Diameter: 13.0mm PHACO INFO: Antony PrestoBoxurion Vision System with OZil and Active Fluidics Cumulative Dispersed Energy (CDE): 7.66 seconds SURGEON: Dar Mills MD, ADENIKE ANESTHESIA: Monitored Anesthesia Care (MAC), with local sub-tenon's anesthetic infiltration COMPLICATIONS: None SPECIMENS: None INDICATIONS FOR PROCEDURE: The patient is a 69-year-old lady with history of diminished visual acuity in both eyes secondary to the development of bilateral nuclear cataract. She has already undergone cataract surgery in the right eye and is doing well postoperatively. She now presents for cataract surgery in the left eye. See office notes for detailed information. PROCEDURE: The correct surgical eye was identified and marked as the left eye and the pupil was dilated in the preoperative area using mydriatics and cycloplegics. The dilated pupil size was 7.0 mm. Oral sedation was administered in the form of an Imprimis MKO Melt (midazolam 3mg/ketamine 25mg/ondansetron 2mg). The patient was brought to the operating room where cardiopulmonary monitoring was instituted and surgical time-out was performed, confirming the correct operative eye and IOL power. Topical anesthesia was administered and ophthalmic povidone-iodine 5% was instilled into the conjunctival fornices. The kim-ocular area was prepped with Betadine 10% solution and draped in the usual sterile fashion for intraocular surgery, including an aperture drape. A Tegaderm transparent film dressing was cut in half and used to cover the lashes and lid margins. Care was taken to sequester the lashes and lid margins under the Tegaderm dressing. A lid speculum was placed between the lids of the operative eye and the Antony LuxOR Revalia operating microscope was maneuvered into position. Lenore scissors were then used to make a conjunctival buttonhole approximately 6mm posterior to the limbus in the inferonasal quadrant. Blunt dissection was carried out to expose bare sclera, and a blunt-tipped sub-tenon?s anesthesia cannula was introduced and passed posteriorly along the globe where non-preserved plain lidocaine was injected into posterior sub-Tenon?s space. A sideport knife was used to make a paracentesis port. Intraocular phenylephrine/lidocaine was injected into the anterior chamber. The anterior chamber was then filled with viscoelastic. A keratome knife was used construct a two-plane clear corneal tunnel extending 2.0mm into clear cornea. A flap was raised on the anterior capsule and capsulorhexis forceps were used to complete a continuous curvilinear capsulorhexis of 5.0 mm. Balanced salt solution was then used to perform cortical cleaving hydrodissection and nuclear hydrodelineation until the lens could be freely rotated within the capsular bag. The lens nucleus was then disassembled and removed within the capsular bag and iris plane using phacoemulsification. Residual cortical material was removed using the irrigation/aspiration handpiece. The posterior capsule was carefully polished to remove as much residual lens epithelial cells as safely possible. The capsular bag was then inflated and the anterior chamber deepened with viscoelastic. The lens implant described above was inserted into the capsular bag using the Antony Autonome Injector. A Kuglen hook was used to dial the IOL into position. Residual viscoelastic was then removed first from posterior to the IOL, then from the anterior chamber using the I/A handpiece. The lens implant was noted to center nicely within the capsular bag. The incisions were stromally hydrated, and the anterior chamber was reformed using BSS. Then 0.5cc of moxifloxacin 1.0mg/ml were injected into the capsular bag and anterior chamber. The incisions were checked with a Weck spear and found to be secure. Several drops of ophthalmic povidone-iodine 5% were then applied to the eye followed by two drops of combination steroid/NSAID/antibiotic solution. The drapes were removed and a clear plastic protective eye shield was placed over the eye. The patient was then returned to Same Day Surgery in stable condition. Date of Procedure: 02/04/25
[2025-02-04 14:44] VITALS: BP 155/85; PULSE 77; RESP 20; TEMP 36.5; O2SAT 98
--- NOTE | 2025-02-04 15:05 | W.ANESPOSTOP ---
Postoperative Evaluation Date, Time and Location Date Performed: 02/04/25 Time Performed: 14:48 Patient Location: Day Surgery Unit Vital Signs Most Recent Imported Vital Signs: Most Recent Vital Signs Temp Pulse Resp BP Pulse Ox 36.5 C 77 20 155/85 H 98 02/04/25 14:44 02/04/25 14:44 02/04/25 14:44 02/04/25 14:44 02/04/25 14:44 Pain Score Most Recent Pain Score: Most Recent Pain Score Pain Level 0 02/04/25 14:44 Assessment Mental Status: Awake (Alert & Oriented to Patient Baseline) Airway and Respiratory Function: Patent airway with normal (patient baseline) respiratory exam Cardiovascular Function: Hemodynamically Stable Hydration Status: Adequately Hydrated Nausea & Vomiting: No Nausea or Vomiting Pain: Pt. Denies Any Pain Peripheral Nerve Block: Other (Local by Dr. Mills)
[2025-02-04 15:11] VITALS: BP 135/82; PULSE 73; RESP 18; TEMP 37; O2SAT 95
== END 2025-02-04 15:15 | disposition home or self-care (01) ==
LOC: SUR 12:43
PROVIDERS: PCP Neuromusculoskeletal Medicine & OMM; Visit Provider Ophthalmology
PROC: (CPT 66984; principal; 2025-02-04 14:30)
DX: H25.12 Age-related nuclear cataract, left eye (principal); Z98.41 Cataract extraction status, right eye
CPT/HCPCS: 66984; 00123; V2632; J2003